=== PATIENT | male | born 1970 | race Hispanic/Latino ===

== ENCOUNTER 2020-03-10 22:42 | Observation (INO) | payer SELFPAY ==
--- NOTE | 2020-03-10 23:14 | RAD ---
SINGLE VIEW OF THE CHEST: 03/10/20 COMPARISON: None. HISTORY: Left sided chest pain for four to five months. FINDINGS: Single view of the chest shows a normal sized cardiomediastinal silhouette. There is no evidence of c onsolidation, mass, or pleural effusion. The bones are unremarkable. IMPRESSION: No evidence of acute cardiopulmonary disease. POS: EAA
[2020-03-10 23:25] LABS: #Eosinphils 0.3 thou/uL (0.0-0.7); #Lymphocytes 2.4 thou/uL (1.20-3.40); #Monocytes 0.4 thou/uL (0.11-0.59); %Basophils 0.4 % (0.0-1.0); %Eosinophils 4.3 % (0.0-10.0); %Lymphocytes 33.3 % (21.0-51.0); %Monocytes 6.1 % (0.0-10.0); %Neutrophils 55.8 % (42.0-75.0); Hemoglobin 15.9 g/dL (14.0-18.0); Mean Corpuscular HGB CONC 34.8 g/dL (32.0-36.0); Mean Corpuscular Volume 89.2 fL (78.0-98.0); Mean Platelet Volume 6.1 fL (7.4-10.4); Platelet Count 264 thou/uL (130-400); RBC Distribution Width 11.5 % (11.5-14.5); Red Blood Cell (RBC) Count 5.13 mill/uL (4.70-6.10); White Blood Cell (WBC) Count 7.2 thou/uL (4.8-10.8)
[2020-03-10] MEDS ORDERED: Labetalol HCl 100 MG/20 ML VIAL ONE (23:29)
[2020-03-10 23:38] LABS: ALT (SGPT) 30 U/L (8-55); AST (SGOT) 52 U/L (5-34); Albumin 4.2 g/dL (3.5-5.0); Alkaline Phosphatase 56 U/L (40-110); Anion Gap 18 mmol/L (10-20); BUN (Urea Nitrogen) 11 mg/dL (8.9-20.6); Bilirubin, Total 0.8 mg/dL (0.2-1.2); Calc. Creatinine Clearance 0 mL/min (70-130); Calcium 9.8 mg/dL (7.8-10.44); Carbon Dioxide 28 mmol/L (22-29); Chloride 97 mmol/L (98-107); Estimated GFR-MDRD 81; Globulin 3.3 g/dL (2.4-3.5); Glucose 98 mg/dL (70-105); Potassium 3.5 mmol/L (3.5-5.1); Protein, Total 7.5 g/dL (6.0-8.3); Sodium 139 mmol/L (136-145)
[2020-03-10 23:59] LABS: CKMB 3.3 ng/mL (0-6.6)
[2020-03-11] MEDS ORDERED: Aspirin 325 MG TAB ONE (00:20)
[2020-03-11] MEDS ORDERED: Nitroglycerin 2% Ointment 1 INCH/1 GM Packet ONE (00:20)
[2020-03-11] MEDS ORDERED: Nitroglycerin 0.4 MG TAB 1 EACH ONE (00:29)
[2020-03-11] MEDS ORDERED: Nitroglycerin 0.4 MG TAB (25 Tab Bottle) PO PRN (00:44)
[2020-03-11] MEDS ORDERED: Carvedilol 3.125 MG TAB PO SCH (01:00)
[2020-03-11] MEDS ORDERED: Labetalol HCl 100 MG/20 ML VIAL SLOW IVP PRN (01:13)
--- NOTE | 2020-03-11 01:29 | HP ---
CHIEF COMPLAINT: Chest pain. HISTORY OF PRESENT ILLNESS: Mr. Tyson is a 49-year-old male with no significant past medical history, presented to the emergency room with left-sided chest pain that has been going on for at least 4 months. The patient stated that the pain comes and goes. He feels the pain at the end of the day. He works in [employer]. He denies any past medical history. In the emergency room, the patient was found to be hypertensive with a blood pressure of 180/115. EKG showed T-wave inversions in I, aVL, V3 to V6. Nonspecific changes. LVH. In the emergency room, the patient was given sublingual nitroglycerin, followed by transdermal nitroglycerin, aspirin, and 5 mg of IV Lopressor. Lab work, the patient had a detectable troponin of 0.087. The patient is being admitted to hospital for further management. PAST MEDICAL HISTORY: None. PAST SURGICAL HISTORY: None. FAMILY HISTORY: Reviewed and noncontributory. SOCIAL HISTORY: Denies smoking or drug abuse. He drinks alcohol socially. HOME MEDICATIONS: None. ALLERGIES: NO KNOWN ALLERGIES. REVIEW OF SYSTEMS: Review of 14 systems negative except what is mentioned in history of present illness. PHYSICAL EXAMINATION: GENERAL: The patient is awake, alert, not in acute distress. VITAL SIGNS: Blood pressure 180/110, pulse is 83, respiratory rate is 21, temperature is 98.7, pulse oximetry 96% on room air. HEAD AND NECK: Normocephalic, atraumatic. NECK: Supple. No JVD. CHEST: Fair bilateral air entry. HEART: S1 and S2. Regular. ABDOMEN: Soft, nontender. Bowel sounds present. NEUROLOGIC: Awake, alert, oriented x3. PSYCHIATRIC: Normal mood. EXTREMITIES: No clubbing or cyanosis. LABORATORY DATA: Chest x-ray, no acute findings. Troponin 0.087. ASSESSMENT: 1. Acute chest pain, rule out acute coronary syndrome. 2. Hypertensive urgency. PLAN: 1. Admit. 2. Telemonitoring. 3. Aspirin. 4. Serial troponins. 5. Monitor and control blood pressure. 6. Consult Cardiology in a.m. for evaluation and further recommendations. 7. Expected length of stay, 1 midnight. The patient is stable and further workup negative. Job ID: [id number]
[2020-03-11 01:48] VITALS: BMI 23.3
[2020-03-11] MEDS ORDERED: Enoxaparin Sodium 60 MG/0.6 ML SYRINGE SC SCH (02:00)
[2020-03-11 04:48] LABS: Troponin I 0.109 ng/mL (< 0.028)
[2020-03-11 06:32] LABS: Troponin I 0.111 ng/mL (< 0.028)
[2020-03-11] MEDS ORDERED: Acetaminophen 325 MG TAB PO PRN (07:31)
[2020-03-11] MEDS ORDERED: Ondansetron PF 4 MG/2 ML Vial IVP PRN (07:31)
[2020-03-11] MEDS ORDERED: Calcium Carbonate 500 MG ChewTAB PO PRN (07:31)
[2020-03-11] MEDS ORDERED: Ondansetron ODT 4 MG TAB PO PRN (07:31)
[2020-03-11 07:55] LABS: Cardiac Risk 2.2 (Less than 4.5)
[2020-03-11] MEDS ORDERED: Regadenoson 0.4 MG/5 ML SYRINGE ONE (10:54)
--- NOTE | 2020-03-11 13:58 | CON ---
DATE OF CONSULTATION: 03/11/2020 REASON FOR CONSULTATION: Chest pain. HISTORY OF PRESENT ILLNESS: Mr. Jah Woodson is a pleasant 49-year-old gentleman, who comes to the hospital for chest pain. He noticed about 2 months ago an episode of midsternal chest tightness, lasted for about 30 minutes, went away on its own. He decided to not come in because of the coronavirus pandemic, and he decided that if he were to have a recurrence of his pain, he would come in. For the last 2 weeks, he has noticed chest pain left-sided. 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 He is very active during the day. It does not hurt at all when he is out and about, walking around and doing all the exertion he has to do, but when he gets home and he rests, he starts noticing that left-sided chest pain, he states it is worse when he moves his arm, better when he just stays still, and it goes away again after he starts doing things. He otherwise denies any nausea or vomiting. No diaphoresis. He saw a physician about 2 years ago for lower back pain. He was told he had an inflamed muscle. He was given some anti-inflammatories for it, which he took for about a week or 2 and everything got better after that. He had his blood pressure checked at that time. He remembers being told that everything else looked fine, but he does not know numbers. In his initial evaluation in the ER, he was found to be very hypertensive. He was admitted for possible hypertensive emergency and rule out. On my evaluation, Mr. Tyson is pain free; however, if he moves his left side, he feels the pain on the upper left chest. PAST MEDICAL HISTORY: None. PAST SURGICAL HISTORY: None. FAMILY HISTORY: Noncontributory. SOCIAL HISTORY: No tobacco or drugs. He drinks alcohol socially. OUTPATIENT MEDICATIONS: None. ALLERGIES: NO KNOWN DRUG ALLERGIES. REVIEW OF SYSTEMS: A 10-point review of systems was done and was all negative unless stated in the history of present illness. PHYSICAL EXAMINATION: VITAL SIGNS: Temperature 98.3, pulse 91, respiratory rate 18, saturation 95% on room air, and blood pressure 179/105. GENERAL: Awake, alert, oriented x3. In no distress. HEENT: Normocephalic and atraumatic. NECK: Supple. LUNGS: Clear. CARDIOVASCULAR: S1 and S2. No S3 or S4. There is a grade 3/6 systolic murmur at right upper sternal border. There is an apical murmur as well. ABDOMEN: Soft. Positive bowel sounds. EXTREMITIES: No edema. SKIN: Warm and dry. LABORATORY DATA: Laboratory work was reviewed. CBC is unremarkable. White count 7, hemoglobin 15, hematocrit 45, and platelet count 264. Chemistry was unremarkable. Troponin was 0.08, 0.10, and 0.11. Triglycerides of 60, cholesterol total of 201, LDL of 96, HDL of 93. EKG was reviewed. Chest x-ray was reviewed, which was unremarkable. ASSESSMENT AND PLAN: 1. Chest pain, atypical. 2. Hypertension. PLAN: 1. We will certainly need to start some antihypertensive medications. Agree with carvedilol at this time. We will add low-dose JOHNATHON inhibitor as well to try to get his blood pressure a little bit better controlled. 2. He has a very loud systolic murmur. We will get an echocardiogram to assess for this. 3. We will do a stress test to evaluate for coronary artery disease. 4. Further recommendations per results of echo and stress testing. Thank you for letting us to participate in the care of your patient. We will follow. Job ID: [id number]
--- NOTE | 2020-03-11 15:36 | NM ---
Radionucleotide stress and rest myocardial perfusion scan with CT attenuation correction and SPECT im aging Left ventricular wall motion evaluation and ejection fraction HISTORY: Chest pain. FINDINGS: Lexiscan protocol. There is homogeneous uptake of radiotracer throughout the left ventricul ar myocardium. No focal perfusion defect or reversibility. QGS analysis of gated SPECT images shows diminished movement of the septum, with a dyskinetic basilar portion. Ejection fraction calculated at 47%. IMPRESSION : Normal perfusion exam. No evidence of ischemia. Borderline ejection fraction of 47%. Hypokinesis/dyskinesis of the septum. Cause is not evident.
[2020-03-11] MEDS: Carvedilol 3.125 MG TAB PO SCH ×2 (16:32)
[2020-03-11] MEDS: Aspirin 325 mg Enteric Coated Tablet PO SCH (16:32)
[2020-03-11] MEDS: Famotidine 20 MG TAB PO SCH ×2 (16:33→20:43)
[2020-03-11] MEDS ORDERED: cloNIDine 0.1 MG TAB PO PRN (17:20)
[2020-03-11] MEDS ORDERED: Atorvastatin Calcium 40 MG TAB PO SCH (21:00)
[2020-03-12 07:57] VITALS: TEMP 98.3
[2020-03-12] MEDS: Aspirin 325 mg Enteric Coated Tablet PO SCH (07:58)
[2020-03-12] MEDS: Carvedilol 3.125 MG TAB PO SCH (07:58)
[2020-03-12] MEDS: Famotidine 20 MG TAB PO SCH (07:58)
[2020-03-12] MEDS ORDERED: Lisinopril 5 MG TAB PO SCH (09:00)
[2020-03-12] MEDS ORDERED: Lisinopril 10 MG TAB PO SCH (11:30)
[2020-03-12 11:43] VITALS: BP 154/92
--- NOTE | 2020-03-12 12:09 | PDOC.CPN ---
- Subjective Date: 03/12/20 Time: 12:05 Interval history: Chest pain improved. Stress test showed no reversible ischemia. Echo with LVH and normal EF. - Review of Systems General: denies: fever/chills, weight/appetite/sleep changes, night sweats, fatigue Respiratory: denies: cough, congestion, shortness of breath, exercise intolerance Cardiovascular: denies: chest pain, palpitation, edema, paroxysmal nocturnal dyspnea, orthopnea Gastrointestinal: denies: nausea, vomiting, diarrhea, constipation, abd pain, GI bleeding Musculoskeletal: denies: pain, tenderness, stiffness, swelling, arthritis/ arthralgias Neurological: denies: numbness, syncope, seizure, weakness - Objective Allergies/Adverse Reactions: Allergies Allergy/AdvReac Type Severity Reaction Status Date / Time No Known Drug Allergies Allergy Verified 03/11/20 02:10 Visit Medications: Current Medications Acetaminophen (Tylenol) 650 mg PO Q4H PRN PRN Reason: Headache/Fever/Mild Pain (1-3) Last Admin: 03/12/20 03:46 Dose: 650 mg Calcium Carbonate (Tums) 1,000 mg PO Q4H PRN PRN Reason: Heartburn or Indigestion Carvedilol (Coreg) 3.125 mg PO BID-[facility] Last Admin: 03/12/20 07:58 Dose: 3.125 mg Clonidine (Catapres) 0.1 mg PO Q4H PRN PRN Reason: SBP Greater Than 180 Famotidine (Pepcid) 20 mg PO BID [facility] Last Admin: 03/12/20 07:58 Dose: 20 mg Labetalol HCl (Normodyne) 10 mg SLOW IVP Q4H PRN PRN Reason: SBP Greater Than 180 Lisinopril (Zestril) 5 mg PO DAILY [facility] Last Admin: 03/12/20 07:59 Dose: 5 mg Lisinopril (Zestril) 10 mg PO NOW [facility] Stop: 03/12/20 13:30 Last Admin: 03/12/20 11:43 Dose: 10 mg Nitroglycerin (Nitrostat) 0.4 mg PO Q5MIN PRN PRN Reason: Chest Pain Ondansetron HCl (Zofran Odt) 4 mg PO Q6H PRN PRN Reason: Nausea/Vomiting Ondansetron HCl (Zofran) 4 mg IVP Q6H PRN PRN Reason: Nausea/Vomiting Sodium Chloride (Flush - Normal Saline) 10 ml IVF PRN PRN PRN Reason: Saline Flush Vital Signs & Weight: Vital Signs Temp Pulse Resp BP Pulse Ox 03/12/20 11:40 98.3 F 72 16 154/92 H 97 03/12/20 07:54 98.3 F 70 18 160/103 H 95 03/12/20 03:20 98.6 F 69 18 171/98 H 97 Weight 134 lb 4.8 oz - Physical Exam General: alert & oriented x3, appears well HEENT: mucus membranes moist Neck: supple neck Cardiac: regular rate and rhythm Lungs: clear to auscultation Neuro: grossly intact Abdomen: active bowel sounds Extremities: no edema Skin: clear Musculoskeletal: no pain - Labs Result Diagrams: 03/10/20 23:06 03/10/20 23:06 Troponin/CKMB CK-MB (CK-2) 3.3 ng/mL (0-6.6) 03/10/20 23:06 Troponin I 0.111 ng/mL (< 0.028) H 03/11/20 06:00 - Telemetry Sinus rhythms and dysrhythmias: sinus rhythm - Assessment/Plan Assessment/Plan: 1. HTN 2. Chest pain, atypical 3. LVH 4. Diastolic dysfunction,. PLAN: - BP control. - Would increase his Lisinopril to 10 mg BID and coreg at 6.25 mg BID and add HCTZ at 12.5 mg daily. - No reversible ischemia on MPI, normal LV function on echo. - Follow up in the office in 1 month for up titration of BP meds - May discharge any time from cardiac perspective. - Advised if chest pain continues despite BP control he needs to return for evaluation.
--- NOTE | 2020-03-12 14:45 | EKG ---
Test Reason : Blood Pressure : / mmHG Vent. Rate : 093 BPM Atrial Rate : 093 BPM P-R Int : 136 ms QRS Dur : 106 ms QT Int : 376 ms P-R-T Axes : 028 017 170 degrees QTc Int : 467 ms Normal sinus rhythm Possible Left atrial enlargement Left ventricular hypertrophy with repolarization abnormality Abnormal ECG Confirmed by STAN HENDRICKS ([id number]), purchase request editor DAVID CLARK ([id number] on 03/12/2020 2:44:56 PM Referred By: Confirmed By:STAN HENDRICKS
--- NOTE | 2020-03-12 19:42 | DIS ---
DATE OF ADMISSION: 03/11/2020 DATE OF DISCHARGE: 03/12/2020 DISCHARGE DISPOSITION: Home. FOLLOWUP: 1. Follow up with primary care physician at [facility] in 1 week. 2. Follow up with Dr. Gooden, Cardiology in 2 to 3 weeks. ALLERGIES: NO KNOWN DRUG ALLERGIES. THE PATIENT WAS SEEN AND EXAMINED ON THE DAY OF DISCHARGE. DENIES ANY NEW COMPLAINTS. NO CHEST PAIN, SHORTNESS OF BREATH, OR PALPITATIONS REPORTED. DISCHARGE MEDICATIONS: 1. Carvedilol 6.25 mg b.i.d. 2. Lisinopril and HCTZ 20/12.5 mg daily. BRIEF HOSPITAL COURSE: The patient is a 49-year-old male, who presented to the emergency room with chest discomfort along with elevated blood pressure. His blood pressure in the emergency room was 180/115. His EKG showed T-wave inversions in the lateral leads. He was monitored on the telemetry unit. His serial troponins were in the indeterminate range with maximum troponin of 0.11. He was started on carvedilol along with lisinopril. He underwent a Cardiolite stress test that was negative for reversible ischemia. Ejection fraction was 47% with hypokinesis/dyskinesis of the septum. However, his echocardiogram showed ejection fraction 55% to 60% with grade 1 of 3 diastolic dysfunction, moderate concentric left ventricular hypertrophy, mild mitral regurgitation, and mild tricuspid regurgitation. The patient has been cleared by Cardiology for discharge. FINAL DIAGNOSES: 1. Chest discomfort with hypertensive urgency. 2. Hypertensive heart disease. 3. Chronic diastolic heart failure. 4. Hyperlipidemia. 5. Chronic kidney disease, stage 2. 6. Elevated troponin, probably secondary to type 2 myocardial infarction present on admission. 7. Slightly abnormal LFTs. Repeat LFTs in 1 to 2 weeks is recommended as outpatient. Primary care physician advised to follow. Job ID: [id number]
== END 2020-03-12 12:50 | disposition home or self-care (01) ==
LOC: ERS 22:42 → 2NO 03-11 00:50
PROVIDERS: ADMIT Internal Medicine; ATTEND Internal Medicine
DX: R07.89 Other chest pain (principal); I16.0 Hypertensive urgency; I13.0 Hypertensive heart and chronic kidney disease with heart failure and stage 1 through stage 4 chronic kidney disease, or unspecified chronic kidney disease; N18.2 Chronic kidney disease, stage 2 (mild); I50.32 Chronic diastolic (congestive) heart failure; E78.5 Hyperlipidemia, unspecified; R79.89 Other specified abnormal findings of blood chemistry
CPT/HCPCS: 36415; 71045; 78452; 80053; 80061; 82553; 84484; 85025; 93005; 93017; 93306; 94760; 96372; 96374; A9500; G0378; J1650; J2785